=== PATIENT | female | born 1990 | race Caucasian/White ===

== ENCOUNTER 2016-11-27 18:05 | Emergency (ER) | payer OTHER ==
[~2016-11-27] VITALS: Ht 162.6 cm; Wt 76.1 kg
[2016-11-27 18:41] VITALS: Ht 162.6 cm; Wt 76.1 kg
--- NOTE | 2016-11-27 19:34 | ERA ---
ER Documentation Chief Complaint Date/Time DATE: 11/27/16 TIME: 19:34 Chief Complaint fever x 2 days, HPI The patient is a 25-year-old female, presenting to the ER because of sore throat , ear pain, fever for 2 days. He denies neck pain, chest pain, dyspnea, abdominal pain, vomiting, dysuria. He does not smoke, drinks socially Past medical/surgical history: None ROS All systems reviewed and are negative except as per history of present illness. Medications Home Meds Active Scripts Ibuprofen* (Ibuprofen*) 600 Mg Tablet, 600 MG PO Q6H Y for PAIN, #20 TAB Prov:LIZETTE GHOTRA MD 11/27/16 Amoxicillin* (Amoxicillin*) 500 Mg Cap, 500 MG PO TID for 10 Days, CAP Prov:LIZETTE GHOTRA MD 11/27/16 Allergies Allergies: Coded Allergies: No Known Allergies (Verified Allergy, Mild, 05/12/10) PMhx/Soc History of Surgery: No Anesthesia Reaction: No Hx Neurological Disorder: No Hx Respiratory Disorders: No Hx Cardiac Disorders: No Hx Psychiatric Problems: No Hx Miscellaneous Medical Probl: No Hx Alcohol Use: Yes Hx Substance Use: No Hx Tobacco Use: Yes Physical Exam Vitals Vital Signs Date Time Temp Pulse Resp B/P Pulse Ox O2 Delivery O2 Flow Rate FiO2 11/27/16 18:41 100.6 109 20 130/69 100 Physical Exam Const: No acute distress. Head: Atraumatic. Eyes: Normal Conjunctiva. ENT: Normal External Ears, Nose and Mouth. Bilateral tympanic membrane within normal limits. Tonsils are edematous and erythematous, no exudate Neck: Full range of motion. No meningismus. Resp: Clear to auscultation bilaterally. Cardio: Regular rate and rhythm, no murmurs. Abd: Soft, non distended, normal bowel sounds, non tender. Skin: No petechiae or rashes. Back: No midline or flank tenderness. Ext: No cyanosis, or edema. Neur: Awake and alert. No focal deficit Psych: Normal Mood and Affect. Procedures/MDM MEDICAL MAKING DECISION: The patient is a 25-year-old female, presenting with acute tonsillitis. The differential diagnoses considered include but are not limited to pneumonia, otitis media, pharyngitis, Departure Diagnosis: Primary Impression: Tonsillitis Condition: Good Comments She was discharged with amoxicillin, Motrin I discussed the findings with the patient. I advised the patient to follow-up with the primary physician in about 1-2 days, sooner if needed and return if any concern. LIZETTE GHOTRA MD Nov 27, 2016 19:34
[2016-11-27] MEDS ORDERED: AMO500 PO (19:41)
[2016-11-27] MEDS ORDERED: IBUP-1542 PO (19:41)
== END 2016-11-27 19:53 | disposition home or self-care (01) ==
LOC: FTE 18:05
DX: J03.90 Acute tonsillitis, unspecified (principal); Z87.891 Personal history of nicotine dependence
CPT/HCPCS: 99283

== ENCOUNTER 2016-11-30 12:15 | Emergency (ER) | payer OTHER ==
[~2016-11-30] VITALS: Wt 79.0 kg
[~2016-11-30 12:15] MED LIST: AMO500 PO; IBUP-1542 PO
[2016-11-30] MEDS ORDERED: DEXAMETHASONE 10 MG/ML 1 ML INJ IM ONE (13:00)
--- NOTE | 2016-11-30 13:36 | ERA ---
ER Documentation Chief Complaint Date/Time DATE: 11/30/16 TIME: 13:19 Chief Complaint SORE THROAT X 1 WEEK HPI Patient is a 26-year-old female with a chief complaint of tonsillitis. Patient was in the emergency department within the past week was prescribed amoxicillin her symptoms have since gotten worse. Patient describes a change in illness. Patient describes difficulty breathing. Describes abdominovaginal dysphagia. ROS All systems reviewed and are negative except as per history of present illness. Medications Home Meds Active Scripts Ibuprofen* (Ibuprofen*) 600 Mg Tablet, 600 MG PO Q6H Y for PAIN, #20 TAB Prov:LIZETTE GHOTRA MD 11/27/16 Amoxicillin* (Amoxicillin*) 500 Mg Cap, 500 MG PO TID for 10 Days, CAP Prov:LIZETTE GHOTRA MD 11/27/16 Allergies Allergies: Coded Allergies: No Known Allergies (Verified Allergy, Mild, 05/12/10) PMhx/Soc History of Surgery: No Anesthesia Reaction: No Hx Neurological Disorder: No Hx Respiratory Disorders: No Hx Cardiac Disorders: No Hx Psychiatric Problems: No Hx Miscellaneous Medical Probl: No Hx Alcohol Use: No Hx Substance Use: No Hx Tobacco Use: No Smoking Status: Never smoker Physical Exam Vitals Vital Signs Date Time Temp Pulse Resp B/P Pulse Ox O2 Delivery O2 Flow Rate FiO2 11/30/16 12:21 98.0 71 18 123/71 99 Physical Exam Const: Overweight 26-year-old female with a hot potato voice. Head: Atraumatic Eyes: Normal Conjunctiva ENT: Marked enlargement of the tonsils bilaterally with exudates bilaterally Neck: Full range of motion..~ No meningismus. Resp: Clear to auscultation bilaterally. Auscultation of the neck revealed no stridor. Cardio: Regular rate and rhythm, no murmurs Abd: Soft, non tender, non distended. Normal bowel sounds Skin: No petechiae or rashes Back: No midline or flank tenderness Ext: No cyanosis, or edema Neur: Awake and alert Psych: Normal Mood and Affect Results 24 hrs Current Medications Medications (Trade) Dose Ordered Sig/[place] Route PRN Reason Start Time Stop Time Status Last Admin Dose Admin Dexamethasone (Decadron) 10 mg ONCE ONCE IM 11/30/16 13:00 11/30/16 13:02 DC 11/30/16 13:00 Procedures/MDM 26-year-old female presenting with a chief complaint tonsillitis was treated 1 week ago in the ED and tonsillitis is since gotten worse. Patient is a hot potato voice and describes difficulty breathing. Presented the case to Dr. Jiménez reevaluated the patient and agreed that at this time there is a very low suspicion for epiglottitis or a peritonsillar abscess. Patient was given Decadron 10 mg IM. After reevaluation the patient's symptoms have significantly subsided. Patient is in no acute distress vitals are stable. Will switch antibiotic to clindamycin. I have spoken with Dr. Jiménez and he agrees with my assessment and plan. Departure Diagnosis: Primary Impression: Acute bacterial tonsillitis Condition: Stable Additional Instructions: Follow up with your PCP within the next 1-3 days for a more thorough evaluation and a possible referral to a specialist. Return the the emergency department immediately if symptoms worsen or change. If you have any questions regarding medications, ask your pharmacist or us before you leave. If any adverse reactions occur while taking your medications, discontinue the treatment and return to the emergency department immediately. Take your medications as directed, and complete the entire course of treatment. LIZETTE PALOMARES PA-C Nov 30, 2016 13:30
[2016-11-30] MEDS ORDERED: CLIN-73 PO (13:46)
== END 2016-11-30 14:46 | disposition home or self-care (01) ==
LOC: FTE 12:15
DX: J03.90 Acute tonsillitis, unspecified (principal)
CPT/HCPCS: 96372; J1100; Z7502